=== PATIENT | female | born 1985 | race African-American/Black ===

== ENCOUNTER 2024-05-26 23:04 | Outpatient (CLI) | payer MEDICARE, SELFPAY | END 2024-05-26 23:05 | disposition home or self-care (01) | LOC: AMB 05-28 18:18 | PROVIDERS: Visit Provider Emergency Medicine | DX: I20.9 Angina pectoris, unspecified (principal); R07.89 Other chest pain; R51.9 Headache, unspecified | CPT/HCPCS: A0425; A0434 ==

== ENCOUNTER 2024-06-17 13:27 | Outpatient (CLI) | payer MEDICARE, SELFPAY | END 2024-06-17 13:28 | disposition home or self-care (01) | LOC: AMB 06-22 23:50 | PROVIDERS: PCP Internal Medicine; Visit Provider Emergency Medicine Emergency Medical Services | DX: R51.9 Headache, unspecified (principal) | CPT/HCPCS: A0425; A0427 ==

== ENCOUNTER 2024-06-17 13:53 | Emergency (ER) | payer MEDICARE, SELFPAY ==
[2024-06-17] VITALS (37 sets, daily range): BP systolic 193–243; BP diastolic 114–134; PULSE 65–84; RESP 16–18; TEMP 36.6; O2SAT 97–100; BMI 24.4
--- NOTE | 2024-06-17 14:22 | ED.GENADULT ---
HPI - General Adult General Chief complaint: Hypertension Stated complaint: High BP Time Seen by Provider: 06/17/24 13:55 History of Present Illness HPI narrative: This 39-year-old female comes in with elevated blood pressure. She states that she went to her dialysis appointment and was sent here because her blood pressure was too high. She states that she was at a clinic appointment somehow a also today and her blood pressure at that time was 240/140. She reports that she received clonidine. She arrives here with a systolic blood pressure around 195. She is reporting a headache. She states that she is on dialysis and is not sure why her kidneys had failed however she does report that she had elevated blood pressure during and after the time of her about 10 years ago. Related Data Home Medications ?Medication ?Instructions ?Recorded ?Confirmed calcium acetate(phosphat bind) 667 1,334 mg PO 3XD 06/17/24 06/17/24 mg capsule clonidine HCl 0.1 mg tablet 0.1 mg PO BID 06/17/24 06/17/24 isosorbide mononitrate 30 mg 30 mg PO DAILY 06/17/24 06/17/24 tablet,extended release 24 hr isosorbide mononitrate 60 mg 60 mg PO DAILY 06/17/24 06/17/24 tablet,extended release 24 hr labetalol 200 mg tablet 400 mg PO BID 06/17/24 06/17/24 losartan 100 mg tablet 100 mg PO DAILY 06/17/24 06/17/24 losartan 50 mg tablet 50 mg PO BID 06/17/24 06/17/24 nifedipine 30 mg tablet,extended PO 06/17/24 release 24 hr pantoprazole 40 mg tablet,delayed 40 mg PO DAILY 06/17/24 06/17/24 release prazosin 2 mg capsule 2 mg PO QPM 06/17/24 06/17/24 Previous Rx's ?Medication ?Instructions ?Recorded metoprolol tartrate 50 mg tablet 50 mg PO BID #60 tabs 06/17/24 Allergies Allergy/AdvReac Type Severity Reaction Status Date / Time latex Allergy Verified 06/17/24 14:12 Review of Systems Status of ROS: Reports: 10 or more systems reviewed and unremarkable except as noted in History and below Narrative: Constitutional: No fevers, no weight gain or loss. Eyes: No discharge. No vision changes. HENT: No congestion, no sore throat, no ear pain. Cardiovascular: No chest pain, no palpitations. Respiratory: No shortness of breath, no wheezes, no cough. Gastrointestinal: No abdominal pain, no vomiting, no diarrhea. Genitourinary: No dysuria, no hematuria. Musculoskeletal: Normal range of motion. Skin: No rashes, no pruritis. Neurological: No dizziness, weakness, sensory change, speech change. Endo/Heme/Allergies: No bruising or bleeding. No polydipsia. Pysch: no suicidality, no anxiety, no insomnia. All other systems reviewed and are negative. Exam Narrative: Exam Narrative: Constitutional: Well-developed, well-nourished, no acute distress. HEENT: Normocephalic, atraumatic. Neck: Normal range of motion. Nontender. Supple. Heart: Regular. No murmurs. Normal rate. Intact distal pulses. Lungs: Clear to auscultation. No chest discomfort. No wheezes, rhonchi, or rales. Abdomen: Normal bowel sounds. Nontender. No rebound tenderness. Genitalia: Deferred. Back: No midline tenderness. Normal range of motion. Extremities: Normal range of motion. No injury. Skin: Intact. No rash. Warm. No erythema or pallor. Neurologic: No altered sensation. No weakness. Alert and oriented. Psychiatric: No suicidality. No anxiety or depression. No insomnia. Nursing notes and vitals signs are reviewed. Const: Vital Signs, click to edit/add: Vital Signs - 24 hr 06/17/24 14:01 06/17/24 14:06 06/17/24 14:15 Temperature 97.8 F Pulse Rate 70 71 Pulse Rate [Right Pulse Oximeter] 75 Respiratory Rate 18 Blood Pressure Blood Pressure [Ri ght Upper Arm] 193/114 H Pulse Oximetry 100 100 100 Oxygen Delivery Me thod Room Air 06/17/24 14:17 06/17/24 14:30 06/17/24 14:32 Temperature Pulse Rate 72 74 84 Pulse Rate [Right Pulse Oximeter] Respiratory Rate 18 Blood Pressure 201/118 H 202/128 H Blood Pressure [Ri ght Upper Arm] Pulse Oximetry 100 100 100 Oxygen Delivery Me thod Room Air 06/17/24 14:33 06/17/24 14:45 06/17/24 14:47 Temperature Pulse Rate 73 72 73 Pulse Rate [Right Pulse Oximeter] Respiratory Rate Blood Pressure 209/122 H Blood Pressure [Ri ght Upper Arm] Pulse Oximetry 100 100 99 Oxygen Delivery Me thod 06/17/24 14:48 06/17/24 15:00 06/17/24 15:01 Temperature Pulse Rate 74 73 74 Pulse Rate [Right Pulse Oximeter] Respiratory Rate Blood Pressure 243/134 H Blood Pressure [Ri ght Upper Arm] Pulse Oximetry 97 100 100 Oxygen Delivery Me thod 06/17/24 15:02 06/17/24 15:12 06/17/24 15:15 Temperature Pulse Rate 77 75 74 Pulse Rate [Right Pulse Oximeter] Respiratory Rate Blood Pressure 237/134 H Blood Pressure [Ri ght Upper Arm] Pulse Oximetry 100 100 100 Oxygen Delivery Me thod 06/17/24 15:17 06/17/24 15:18 06/17/24 15:20 Temperature Pulse Rate 78 76 Pulse Rate [Right Pulse Oximeter] Respiratory Rate Blood Pressure 218/125 H Blood Pressure [Ri ght Upper Arm] 207/122 H Pulse Oximetry 100 100 Oxygen Delivery Me thod 06/17/24 15:23 06/17/24 15:25 06/17/24 15:27 Temperature Pulse Rate 76 71 Pulse Rate [Right Pulse Oximeter] 65 Respiratory Rate 18 Blood Pressure 207/122 H 215/124 H Blood Pressure [Ri ght Upper Arm] 215/124 H Pulse Oximetry 100 100 100 Oxygen Delivery Me thod Room Air 06/17/24 15:28 06/17/24 15:30 06/17/24 15:32 Temperature Pulse Rate 70 69 70 Pulse Rate [Right Pulse Oximeter] Respiratory Rate Blood Pressure 223/127 H Blood Pressure [Ri ght Upper Arm] Pulse Oximetry 100 100 100 Oxygen Delivery Me thod 06/17/24 15:45 06/17/24 16:00 06/17/24 16:15 Temperature Pulse Rate Pulse Rate [Right Pulse Oximeter] 69 68 65 Respiratory Rate 18 16 18 Blood Pressure Blood Pressure [Ri ght Upper Arm] 225/121 H 227/123 H 226/121 H Pulse Oximetry 100 100 100 Oxygen Delivery Me thod Room Air Room Air Room Air Course Vital Signs Vital signs: Initial Vital Signs Temperature 97.8 F 06/17/24 14:01 Temperature Source Temporal Artery Scan 06/17/24 14:01 Pulse Rate 75 06/17/24 14:01 Respiratory Rate 18 06/17/24 14:01 Blood Pressure 193/114 H 06/17/24 14:01 Blood Pressure Mean 140 H 06/17/24 14:01 Blood Pressure Position Sitting 06/17/24 14:01 Pulse Oximetry 100 06/17/24 14:01 Oxygen Delivery Method Room Air 06/17/24 14:01 Vital Signs Temperature 97.8 F 06/17/24 14:01 Pulse Rate 75 06/17/24 14:01 Respiratory Rate 18 06/17/24 14:01 Blood Pressure 193/114 H 06/17/24 14:01 Pulse Oximetry 100 06/17/24 14:01 Oxygen Delivery Method Room Air 06/17/24 14:01 Temperature 97.8 F 06/17/24 14:01 Pulse Rate 65 06/17/24 16:15 Respiratory Rate 18 06/17/24 16:15 Blood Pressure 226/121 H 06/17/24 16:15 Pulse Oximetry 100 06/17/24 16:15 Oxygen Delivery Method Room Air 06/17/24 16:15 Medications Administered Medications: Discontinued Medications Generic Name Dose Route Start Last Admin Trade Name Joshuaq PRN Reason Stop Dose Admin Clonidine HCl 0.2 mg 06/17/24 14:21 06/17/24 14:33 Clonidine Hcl 0.1 Mg Tablet PO 06/17/24 14:22 0.2 mg ONCE ONE Administration Isosorbide Mononitrate 30 mg 06/17/24 15:26 06/17/24 15:29 Isosorbide Mononitrate Er 30 Mg Tab PO 06/17/24 15:27 30 mg ONCE ONE Administration Nitroglycerin 0.4 mg 06/17/24 15:02 06/17/24 15:10 Nitroglycerin 0.4 Mg Tab.Subl SUBLINGUAL 06/17/24 15:03 0.4 mg ONCE ONE Administration Sumatriptan Succinate 50 mg 06/17/24 14:21 06/17/24 14:33 Sumatriptan Succinate 50 Mg Tablet PO 06/17/24 14:22 50 mg ONCE ONE Administration Medical Decision Making MDM Narrative Medical decision making narrative: This patient was sent here because of persistently elevated blood pressure. She was scheduled to have dialysis today but was turned away because of elevated blood pressure. I have not encountered this scenario in the past where dialysis is declined for this reason. The patient did take a clonidine tablet prior to arrival here and her blood pressure a initially was at 195 for systolic value. She increased up to 220. She received another tablet of clonidine 0.2 mg which brought temporary decrease but then her blood pressure increased to 240. She then received a nitroglycerin tablet which brought blood pressure down to around 200 but again back up to 220 after some time. She then received isosorbide 30 mg and continues to have systolic blood pressure around 220. She did complain of a headache but is able to sleep and has no other symptoms. It is somewhat unclear what her current antihypertensive meds are. She states she is taking nifedipine and I believe she is taking clonidine but it is unclear in her history report from herself and what records I have available here. I did consult with the hospitalist personal financial representative regarding this. It seems that the patient is not so compliant with her meds and does not have a primary care physician. I did provide a prescription for metoprolol and she is agreeable to this plan. She will need to return to the dialysis clinic likely tomorrow. She will also need to arrange for ongoing management of her blood pressure with her primary care provider. Discharge Plan Discharge Clinical Impression: Hypertension Patient Disposition: Home, Self-Care Condition: Stable Additional Instructions: Continue current medications. Take metoprolol also as prescribed. Follow up with a primary physician for ongoing management of blood pressure medications. Return to dialysis center for dialysis also. Prescriptions: New metoprolol tartrate 50 mg tablet 50 mg PO BID Qty: 60 2RF No Action losartan 50 mg tablet 50 mg PO BID nifedipine 30 mg tablet extended release 24hr PO clonidine HCl 0.1 mg tablet 0.1 mg PO BID labetalol 200 mg tablet 400 mg PO BID isosorbide mononitrate 30 mg tablet extended release 24 hr 30 mg PO DAILY isosorbide mononitrate 60 mg tablet extended release 24 hr 60 mg PO DAILY pantoprazole 40 mg tablet,delayed release (DR/EC) 40 mg PO DAILY losartan 100 mg tablet 100 mg PO DAILY prazosin 2 mg capsule 2 mg PO QPM calcium acetate(phosphat bind) 667 mg capsule 1,334 mg PO 3XD Follow Up/Referrals: Provider,Not a Local [Staff Physician] - Stand Alone Forms: [facility] Info Instructions
[2024-06-17] MEDS: cloNIDine HCL 0.1 MG TABLET 0.2 MG PO (14:33)
[2024-06-17] MEDS: SUMAtriptan succinate 50 MG TABLET PO (14:33)
[2024-06-17] MEDS: NITROGLYCERIN 0.4 MG TAB.SUBL SUBLINGUAL (15:10)
[2024-06-17] MEDS: ISOSORBIDE MONONITRATE ER 30 MG TAB PO (15:29)
== END 2024-06-17 17:36 | disposition home or self-care (01) ==
PROVIDERS: Emergency Provider Emergency Medicine Emergency Medical Services; PCP Internal Medicine
DX: I10 Essential (primary) hypertension (principal)
CPT/HCPCS: 99283; 99284; A9270